=== PATIENT | female | born 1960 | race Caucasian/White ===

== ENCOUNTER 2017-01-28 05:57 | Inpatient (IN) | payer BC, OTHER ==
[2017-01-28] MEDS ORDERED: GABAPENTIN 300 MG CAPSULE (FP) PO ONE (06:31)
[2017-01-28] MEDS ORDERED: TRANEXAMIC ACID 1000 MG/10 ML VIAL IVPUSH ONE (06:31)
[2017-01-28] MEDS ORDERED: CEFAZOLIN 2 GM/D5W 2 GM/50 ML ML IVPB ONE (06:31)
[2017-01-28] MEDS ORDERED: CELECOXIB 200 MG CAPSULE PO ONE (06:31)
[2017-01-28] MEDS ORDERED: ROPIVICAINE 0.2%/MORPH PF/KETOROLAC - 51ML DISP.SYRINGE IA ONE ×2 (06:31→07:33)
[2017-01-28] MEDS ORDERED: oxyCODONE HCL 10 MG SUSTAINED ACTING TABLET PO ONE (06:31)
[2017-01-28] MEDS ORDERED: PANTOPRAZOLE 40 MG TABLET (FP) PO ONE (06:32)
[2017-01-28] MEDS ORDERED: DEXAMETHASONE SOD PHOSPHATE/PF 10 MG/ML SDV ONE (06:45)
[2017-01-28] MEDS ORDERED: SODIUM CHLORIDE 0.9% P/F 10 ML VIAL IJ ONE ×2 (06:45→07:23)
[2017-01-28] MEDS ORDERED: ROPIVACAINE HCL 0.5% 30ML VIAL ONE (06:45)
[2017-01-28] MEDS ORDERED: MIDAZOLAM HCL 2 MG/2 ML SINGLE DOSE VIAL ONE ×2 (06:45→14:03)
[2017-01-28] MEDS ORDERED: oxyCODONE HCL 10 MG SUSTAINED ACTING TABLET ONE (06:57)
[2017-01-28] MEDS ORDERED: GABAPENTIN 300 MG CAPSULE (FP) ONE (06:57)
[2017-01-28] MEDS ORDERED: CELECOXIB 200 MG CAPSULE ONE (06:57)
[2017-01-28] MEDS ORDERED: PANTOPRAZOLE 40 MG TABLET (FP) ONE (06:58)
[2017-01-28] MEDS ORDERED: ONDANSETRON 4 MG/2 ML VIAL ONE (07:11)
[2017-01-28] MEDS ORDERED: PHENYLEPHRINE HCL 10 MG/1 ML SINGLE DOSE VIAL ONE (07:11)
[2017-01-28] MEDS ORDERED: PROPOFOL 20 ML ONE ×7 (07:11→14:07)
[2017-01-28] MEDS ORDERED: ceFAZolin SODIUM 1 GM VIAL ONE ×4 (07:11→12:46)
[2017-01-28] MEDS ORDERED: ePHEDrine SULFATE 50 MG/1 ML AMPULE ONE (07:11)
[2017-01-28] MEDS ORDERED: TRANEXAMIC ACID 1000 MG/10 ML VIAL ONE ×4 (07:15→13:43)
[2017-01-28] MEDS ORDERED: BUPIVACAINE HCL/PF 0.5% (5MG/ML) 10 ML VIAL ONE (07:24)
[2017-01-28] MEDS ORDERED: SCOPOLAMINE HYDROBROMIDE 1 PATCH PATCH.TD72 ONE (07:30)
[2017-01-28] MEDS ORDERED: VANCOMYCIN 1,000 MG VIAL (RESTRICTED TO ID ONLY) ONE (07:33)
--- NOTE | 2017-01-28 07:45 | HP ---
Admitting History and Physical - Admission Chief Complaint: Painful right total knee arthroplasty History of Present Illness: 56 year old female presents today in regard to her right knee. She is status post a previous right total knee arthroplasty. She notes continued pain, difficulty ambulating and difficulty completing ADLs. She has attempted PO medication and activity modification with no relief of her symptoms. 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 Pros, cons, risks, benefits and alternatives of a revision right total knee arthroplasty were discussed. At this point, patient would like to proceed with a revision right total knee arthroplasty. - Past Medical History Cardiovascular: Yes: HTN, Hyperlipdemia ENT: Yes: Other (Vertigo) Endocrine: Yes: Diabetes Mellitus - Past Surgical History Additional Past Surgical History: See written H&P - Smoking History Smoking history: Never smoked Have you smoked in the past 12 months: No - Alcohol/Substance Use Hx Alcohol Use: Yes (OCCASIONAL) Home Medications - Allergies Allergies/Adverse Reactions: Allergies Allergy/AdvReac Type Severity Reaction Status Date / Time No Known Allergies Allergy Verified 04/16/13 20:02 - Home Medications Home Medications: Ambulatory Orders Meclizine HCl [Antivert -] 25 mg PO TID PRN #28 tablet 04/17/13 Atorvastatin Calcium 20 mg PO HS 01/21/17 Canagliflozin [Invokana] 300 mg PO DAILY 01/21/17 Fenofibrate Nanocrystallized [Fenofibrate] 145 mg PO HS 01/21/17 Metoprolol Tartrate 50 mg PO DAILY 01/21/17 Review of Systems - Review of Systems Musculoskeletal: reports: Joint Pain (Right knee), Joint Swelling (Right knee) Physical Examination Vital Signs: Vital Signs Temperature 98.7 F 01/28/17 07:17 Pulse Rate 70 01/28/17 07:17 Respiratory Rate 18 01/28/17 07:17 Blood Pressure 116/78 01/28/17 07:17 O2 Sat by Pulse Oximetry (%) Constitutional: Yes: Well Nourished, No Distress Eyes: Yes: Conjunctiva Clear HENT: Yes: Atraumatic, Normocephalic Neck: Yes: Supple Cardiovascular: Yes: Regular Rate and Rhythm Respiratory: Yes: Regular Gastrointestinal: Yes: Soft ...Rectal Exam: Yes: Deferred Musculoskeletal: Yes: Joint Swelling (Right knee) Assessment/Plan 56 year old female presenting in regard to her right knee. She is status post a previous right total knee arthroplasty. Patient admits to pain, limited ROM, difficulty ambulating and difficulty completing ADLs. Patient has attempted activity modification and PO medications. 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 Pros, cons, risks, benefits and alternatives of a revision right total knee arthroplasty were discussed. Patient confirms her understanding and wishes to proceed with a revision right total knee arthroplasty.
[2017-01-28] MEDS ORDERED: LIDOCAINE HCL 1%, 10 MG/ML (20ML VIAL) ONE (08:01)
[2017-01-28] MEDS ORDERED: THROMBIN (BOVINE) 5,000 UNIT VIAL TP ONE (09:31)
[2017-01-28] MEDS ORDERED: GELATIN, ABSORBABLE 100 EACH SPONGE TP ONE (09:31)
[2017-01-28] MEDS ORDERED: ONDANSETRON 4 MG/2 ML VIAL IVPUSH PRN ×2 (14:47→15:15)
[2017-01-28] MEDS ORDERED: PROMETHAZINE HCL 25 MG/1 ML VIAL IVPUSH PRN (14:47)
[2017-01-28] MEDS ORDERED: traMADol HCL 50 MG TABLET ONE (14:50)
[2017-01-28] MEDS ORDERED: KETOROLAC TROMETHAMINE 30 MG/1 ML VIAL ONE (14:50)
[2017-01-28] MEDS: ACETAMINOPHEN 1000 MG/100 ML VIAL (NON FORMULARY) IVPB ONE ×2 (15:01→16:37)
[2017-01-28] MEDS ORDERED: MECLIZINE HCL 25 MG TABLET (FP) PO PRN (15:10)
--- NOTE | 2017-01-28 15:10 | OP ---
Operative Note - Note: Operative Date: 01/28/17 Pre-Operative Diagnosis: right knee painful TKA, arthrofibrosis Operation: right TKA revision Post-Operative Diagnosis: Same as Pre-op Surgeon: Jules Myers Healthcare Consultant: Kathy Herrera Anesthesia: Spinal Estimated Blood Loss (mls): 500
[2017-01-28] MEDS ORDERED: MAG HYDROX/AL HYDROX/SIMETH 30 ML UNIT-DOSE CUP PO PRN (15:15)
[2017-01-28] MEDS ORDERED: MAGNESIUM HYDROX 2400MG/30ML ORAL SUSPENSION 30 ML CUP PO PRN (15:15)
[2017-01-28] MEDS ORDERED: LACTATED RINGERS SOLUTION 1,000 ML IV SCH (15:15)
[2017-01-28] MEDS ORDERED: ACETAMINOPHEN 1000 MG/100 ML VIAL (NON FORMULARY) IVPB ONE (15:21)
[2017-01-28] MEDS ORDERED: KETOROLAC TROMETHAMINE 30 MG/1 ML VIAL IVPUSH SCH (15:30)
[2017-01-28] MEDS ORDERED: traMADol HCL 50 MG TABLET PO SCH (15:30)
[2017-01-28] MEDS ORDERED: oxyCODONE HCL 5 MG TABLET PO PRN ×2 (15:42)
[2017-01-28] MEDS: LACTATED RINGERS SOLUTION 1,000 ML IV SCH (16:36)
[2017-01-28] MEDS: ACETAMINOPHEN 325 MG TABLET (FP) PO SCH ×2 (16:38→21:16)
[2017-01-28] MEDS: CELECOXIB 200 MG CAPSULE PO SCH (21:16)
[2017-01-28] MEDS: SENNOSIDES/DOCUSATE COMBO (SENNA PLUS) TABLET (UD) PO SCH (21:16)
[2017-01-28] MEDS: ATORVASTATIN CA 20 MG TABLET (FP) PO SCH (21:16)
[2017-01-28] MEDS: GABAPENTIN 300 MG CAPSULE (FP) PO SCH (21:16)
[2017-01-28] MEDS: ASCORBIC ACID 500 MG TABLET (FP) PO SCH (21:16)
[2017-01-28] MEDS: traMADol HCL 50 MG TABLET PO SCH (21:17)
[2017-01-28] MEDS: KETOROLAC TROMETHAMINE 30 MG/1 ML VIAL IVPUSH SCH (21:17)
[2017-01-28] MEDS ORDERED: PATIENT'S OWN MEDICATION (NON-FORMULARY) (Fenofibrate Nanocrystallized [Fenofibrate] 145 M PO SCH (22:00)
[2017-01-29] MEDS: CEFAZOLIN 2 GM/D5W 2 GM/50 ML ML IVPB SCH ×2 (01:43→08:23)
[2017-01-29] MEDS: KETOROLAC TROMETHAMINE 30 MG/1 ML VIAL IVPUSH SCH ×2 (03:00→09:35)
[2017-01-29] MEDS: ACETAMINOPHEN 325 MG TABLET (FP) PO SCH ×4 (04:00→21:46)
[2017-01-29] MEDS: traMADol HCL 50 MG TABLET PO SCH ×5 (08:23→21:45)
[2017-01-29 08:43] LABS: HEMATOCRIT 27.6 % (32.4-45.2); MCH 26.5 pg (25.7-33.7); MCHC 32.7 g/dl (32.0-36.0); PLATELET COUNT 200 K/MM3 (134-434); RDW 14.2 % (11.6-15.6); WHITE BLOOD COUNT 11.4 K/mm3 (4.0-10.8)
[2017-01-29 08:53] LABS: ANION GAP 5 (8-16); BLOOD UREA NITROGEN 21 mg/dl (7-18); CALCIUM 8.4 mg/dl (8.4-10.2); CHLORIDE 110 mmol/L (98-107); CO2 24 mmol/L (22-28); CREATININE 0.8 mg/dl (0.6-1.3); GLUCOSE,RANDOM 155 mg/dl (74-106); POTASSIUM 4.6 mmol/L (3.5-5.1); SODIUM 139 mmol/L (136-145)
[2017-01-29] MEDS: PANTOPRAZOLE 40 MG TABLET (FP) PO SCH (09:35)
[2017-01-29] MEDS: GABAPENTIN 300 MG CAPSULE (FP) PO SCH ×3 (09:35→21:46)
[2017-01-29] MEDS: ASPIRIN 325 MG TABLET PO SCH (09:35)
[2017-01-29] MEDS: SENNOSIDES/DOCUSATE COMBO (SENNA PLUS) TABLET (UD) PO SCH ×2 (09:35→21:46)
[2017-01-29] MEDS: CELECOXIB 200 MG CAPSULE PO SCH ×2 (09:35→21:46)
[2017-01-29] MEDS: METOPROLOL TARTRATE 50 MG TABLET (FP) PO SCH ×2 (09:36→10:23)
[2017-01-29] MEDS: ASCORBIC ACID 500 MG TABLET (FP) PO SCH ×2 (09:36→21:47)
[2017-01-29] MEDS: MULTIVITAMINS (DAILY MVI) TABLET (FP) PO SCH (09:36)
[2017-01-29] MEDS ORDERED: PATIENT'S OWN MEDICATION (NON-FORMULARY) (Canagliflozin [Invokana] 300 MG) PO SCH (10:00)
--- NOTE | 2017-01-29 14:38 | PN ---
Progress Note (short form) - Note Progress Note: 56F POD1 s/p revision right TKR under spinal anesthetic with peripheral nerve blocks for post operative pain control. Pt states that pain is well controlled, and denies any anesthetic complications. Sensory and motor function intact in b/ l lower extremities.
[2017-01-29] MEDS: LACTATED RINGERS SOLUTION 1,000 ML IV SCH (16:22)
--- NOTE | 2017-01-29 20:50 | PN ---
Progress Note (short form) - Note Progress Note: Pt seen and examined. Doing well. Comfortable. AVSS Selected Entries 01/29/17 16:00 Temperature 98 F Pulse Rate 68 Respiratory 18 Rate Blood Pressure 92/62 Laboratory Tests 01/29/17 01/29/17 01/29/17 06:18 07:00 07:00 WBC 11.4 H Hgb 9.0 L Hct 27.6 L Plt Count 200 Sodium 139 Potassium 4.6 Chloride 110 H Carbon Dioxide 24 Anion Gap 5 L BUN 21 H Creatinine 0.8 POC Glucometer 175 Random Glucose 155 H Calcium 8.4 Gen: NAD RLE: c/d/i, NVID A/P 56yo female POD#1 s/p revision R TKA 1. PT/OOB - WBAT RLE 2. D/C home in AM after PT - f/u in office in 10-14 days; call for appt.
--- NOTE | 2017-01-29 21:01 | DS ---
Physical Examination Vital Signs: Vital Signs Temperature 98 F 01/29/17 16:00 Pulse Rate 68 01/29/17 16:00 Respiratory Rate 18 01/29/17 16:00 Blood Pressure 92/62 01/29/17 16:00 O2 Sat by Pulse Oximetry (%) 95 01/29/17 09:00 Labs: CBC, BMP 01/29/17 07:00 01/29/17 07:00 Discharge Summary Reason For Visit: RIGHT KNEE PAIN Current Active Problems Failed total right knee replacement (Acute) Procedures: Principal: revision right TKA, removal of hardware Hospital Course: Admitted for elective surgery. Procedure performed without complications. Pt received postoperative antibiotic prophylaxis and DVT ppx. Ambulated with physical therapy. Stable for discharge home with outpatient followup. Condition: Stable - Instructions Diet, Activity, Other Instructions: Dr. Myers - Knee Replacement Instructions Keep the Aquacel dressing on until removed by Dr. Myers in 10-14 days - it is antibacterial and waterproof and you can shower with it on. Call the office for a follow-up appointment with Dr. Myers in 10-14 days. [phone] Take one Aspirin 325mg daily for 6 weeks to prevent blood clots in your legs. Take one Pantoprazole 40mg daily for 6 weeks to protect against heartburn and ulcers. Take Celebrex 200mg twice daily for 30 days to reduce swelling and inflammation. Take Cephalexin (antibiotic) 3 times a day, with breakfast/lunch/dinner to prevent infection. Take a multivitamin, stool softener, and extra vitamin C supplement daily. For pain: *Mild pain (1-3/10): Take 1 Tramadol tablet every 4 hours as needed. Moderate pain (4-6/10): Take 1 Tramadol tablet and 1 Percocet tablet every 4 hours as needed. Severe pain (7-10/10): Take 1 Tramadol tablet and 2 Percocet tablets every 4 hours as needed. Activity: You can put as much weight on the operative leg as you want. Right after you get home, there will be a physical therapist coming to your house to help you walk around and bend/straighten your knee. After your follow-up appointment, you will be sent for more intensive outpatient physical therapy which will include machines and equipment that the home therapist cannot bring to your house. Always use a walker or cane for balance and to prevent falls. Disposition: HOME - Home Medications Comprehensive Discharge Medication List: Ambulatory Orders Meclizine HCl [Antivert -] 25 mg PO TID PRN #28 tablet 04/17/13 Atorvastatin Calcium 20 mg PO HS 01/21/17 Canagliflozin [Invokana] 300 mg PO DAILY 01/21/17 Fenofibrate Nanocrystallized [Fenofibrate] 145 mg PO HS 01/21/17 Metoprolol Tartrate 50 mg PO DAILY 01/21/17 Ascorbic Acid [Vitamin C -] 500 mg PO BID tablet 01/29/17 Aspirin [ASA -] 325 mg PO DAILY@0800 #40 tablet 01/29/17 Celecoxib [CeleBREX -] 200 mg PO BID #60 capsule 01/29/17 Cephalexin Monohydrate [Keflex -] 500 mg PO TID #30 capsule 01/29/17 Multivitamins [Multivit ([facility])] 1 tab PO DAILY tab 01/29/17 Oxycodone HCl/Acetaminophen [Percocet 5-325 mg Tablet] 1 - 2 tab PO Q4H PRN #60 tablet MDD 8 01/29/17 Pantoprazole Sodium [Protonix -] 40 mg PO DAILY #40 tablet.ec 01/29/17 Sennosides/Docusate Sodium [Pericolace -] 2 tablet PO BID tablet 01/29/17 Tramadol HCl [Ultram -] 50 mg PO Q4H PRN #90 tablet MDD 6 01/29/17
[2017-01-29] MEDS: ATORVASTATIN CA 20 MG TABLET (FP) PO SCH (21:46)
[2017-01-30] MEDS: ACETAMINOPHEN 325 MG TABLET (FP) PO SCH ×2 (05:00→09:54)
[2017-01-30 06:55] VITALS: TEMP 98.2
[2017-01-30 07:00] VITALS: BP 93/47; PULSE 82
[2017-01-30 07:45] LABS: HEMATOCRIT 25.4 % (32.4-45.2); HEMOGLOBIN 8.1 GM/dl (10.7-15.3); MCHC 32.1 g/dl (32.0-36.0); MEAN CELL VOLUME 81.1 fl (80-96); MEAN PLT VOLUME 9.3 fl (7.5-11.1); PLATELET COUNT 155 K/MM3 (134-434); RBC 3.13 M/mm3 (3.60-5.2); RDW 14.1 % (11.6-15.6); WHITE BLOOD COUNT 7.7 K/mm3 (4.0-10.8)
[2017-01-30] MEDS: ASPIRIN 325 MG TABLET PO SCH (08:45)
[2017-01-30 09:08] LABS: ANION GAP 6 (8-16); BLOOD UREA NITROGEN 25 mg/dl (7-18); CALCIUM 7.8 mg/dl (8.4-10.2); CHLORIDE 111 mmol/L (98-107); CO2 24 mmol/L (22-28); CREATININE 0.6 mg/dl (0.6-1.3); GLUCOSE,RANDOM 112 mg/dl (74-106); SODIUM 141 mmol/L (136-145)
[2017-01-30] MEDS: GABAPENTIN 300 MG CAPSULE (FP) PO SCH (09:54)
[2017-01-30] MEDS: PANTOPRAZOLE 40 MG TABLET (FP) PO SCH (09:54)
[2017-01-30] MEDS: ASCORBIC ACID 500 MG TABLET (FP) PO SCH (09:54)
[2017-01-30] MEDS: SENNOSIDES/DOCUSATE COMBO (SENNA PLUS) TABLET (UD) PO SCH (09:54)
[2017-01-30] MEDS: METOPROLOL TARTRATE 50 MG TABLET (FP) PO SCH ×2 (09:54→09:59)
[2017-01-30] MEDS: CELECOXIB 200 MG CAPSULE PO SCH (09:58)
[2017-01-30] MEDS: traMADol HCL 50 MG TABLET PO SCH (09:58)
[2017-01-30] MEDS: MULTIVITAMINS (DAILY MVI) TABLET (FP) PO SCH (09:58)
--- NOTE | 2017-02-01 09:05 | PATH ---
Surgical Pathology Report Patient Name: BAY JAIN Med. Rec. #: [id number] /Age/Gender: 1960 (Age: 56) / F Account: [id number] Location: [facility] Taken: 01/28/2017 Received: 01/28/2017 Reported: 02/01/2017 Physicians: Jules Myers M.D. Specimen(s) Received RIGHT KNEE HARDWARE Clinical History Failed right total knee replacement Final Diagnosis ORTHOPEDIC HARDWARE, RIGHT KNEE, REMOVAL: ORTHOPEDIC HARDWARE CONSISTENT WITH KNEE PROSTHESIS (GROSS ONLY). Electronically Signed Geo Zimmerman M.D. Gross Description Received fresh labeled "right knee hardware," are 3 portions of hardware (2 nazario metallic, 1 white plastic) ranging from 6.3-6.8 cm in greatest dimension, consistent with a knee explant. Also received within the same container are 10 nazario metallic screws ranging from 2.8-7.8 cm in length. No soft tissue is present. No sections are submitted, gross only. 01/29/[address] [facility]01/29/2017
== END 2017-01-30 10:45 | disposition home or self-care (01) | DRG 468 ==
LOC: FM/S 05:57
PROVIDERS: ADMIT Student in an Organized Health Care Education/Training Program; ATTEND Student in an Organized Health Care Education/Training Program
PROC: 0SPC0JZ Removal of Synthetic Substitute from Right Knee Joint, Open Approach (ICD-10-PCS; 2017-01-28)
PROC: 0SRC0JZ Replacement of Right Knee Joint with Synthetic Substitute, Open Approach (ICD-10-PCS; principal; 2017-01-28 09:12)
DX: T84.092A Other mechanical complication of internal right knee prosthesis, initial encounter (principal); Y83.8 Other surgical procedures as the cause of abnormal reaction of the patient, or of later complication, without mention of misadventure at the time of the procedure; Y92.89 Other specified places as the place of occurrence of the external cause; M17.11 Unilateral primary osteoarthritis, right knee; I10 Essential (primary) hypertension; E11.9 Type 2 diabetes mellitus without complications; E78.5 Hyperlipidemia, unspecified; R42 Dizziness and giddiness; Z96.651 Presence of right artificial knee joint
CPT/HCPCS: 36415; 73560-TC-RT; 80048; 85027; 86803; 87389; 88300-TC; 94010; 94760; 97116-GP; 97161-GP

== ENCOUNTER 2017-04-22 06:08 | Day surgery (SDC) | payer BC, OTHER ==
[2017-04-22] MEDS ORDERED: oxyCODONE HCL 10 MG SUSTAINED ACTING TABLET ONE ×2 (07:28→09:53)
--- NOTE | 2017-04-22 07:53 | HP ---
Admitting History and Physical - Admission Chief Complaint: arthrofibrosis of right total knee arthroplasty History of Present Illness: 57 year old female presents in regard to her right knee. she is status post a revision right total knee arthroplasty on 01/28/2017. 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 She has failed physiotherapy. She has severe limited range of motion and difficulty ambulating and difficulty climbing stairs. History Source: Patient - Past Medical History Cardiovascular: Yes: HTN, Hyperlipdemia ENT: Yes: Other (Vertigo) Endocrine: Yes: Diabetes Mellitus - Past Surgical History Additional Past Surgical History: See written history and physical. Revision right total knee arthroplasty 01/28/2017 - Smoking History Smoking history: Never smoked Have you smoked in the past 12 months: No Aproximately how many cigarettes per day: 0 - Alcohol/Substance Use Hx Alcohol Use: No Home Medications - Allergies Allergies/Adverse Reactions: Allergies Allergy/AdvReac Type Severity Reaction Status Date / Time No Known Allergies Allergy Verified 04/16/13 20:02 - Home Medications Home Medications: Ambulatory Orders Meclizine HCl [Antivert -] 25 mg PO TID PRN #28 tablet 04/17/13 Atorvastatin Calcium 40 mg PO HS 01/21/17 Metoprolol Tartrate 50 mg PO DAILY 01/21/17 Aspirin [ASA -] 325 mg PO DAILY@0800 #40 tablet 01/29/17 Oxycodone HCl/Acetaminophen [Percocet 5-325 mg Tablet] 1 - 2 tab PO Q4H PRN #60 tablet MDD 8 01/29/17 Canagliflozin [Invokana] 300 mg PO DAILY 04/21/17 Ezetimibe [Zetia -] 10 mg PO HS 04/21/17 Review of Systems - Review of Systems Musculoskeletal: reports: Decreased ROM (right knee) Physical Examination Vital Signs: Vital Signs Temperature 97.7 F 04/22/17 06:54 Pulse Rate 71 04/22/17 06:54 Respiratory Rate 16 04/22/17 06:54 Blood Pressure 113/73 04/22/17 06:54 O2 Sat by Pulse Oximetry (%) 97 04/22/17 06:54 Constitutional: Yes: Well Nourished, No Distress Eyes: Yes: Conjunctiva Clear HENT: Yes: Atraumatic Neck: Yes: Supple Cardiovascular: Yes: Regular Rate and Rhythm Respiratory: Yes: Regular Gastrointestinal: Yes: Soft ...Rectal Exam: Yes: Deferred Musculoskeletal: Yes: Other (limited range of motion right knee) Assessment/Plan 57 year old female presents in regard to her right knee. she is status post a revision right total knee arthroplasty on 01/28/2017. 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 She has failed physiotherapy. She has severe limited range of motion and difficulty ambulating and difficulty climbing stairs. Pros, cons, risks, benefits, and alternatives of a right knee manipulation under anesthesia was discussed with the patient. Patient confirms her understanding and wishes to proceed with a manipulation under anesthesia of her right total knee arthroplasty.
[2017-04-22] MEDS ORDERED: KETOROLAC TROMETHAMINE 60 MG/2 ML VIAL ONE (08:13)
[2017-04-22] MEDS ORDERED: BUPIVACAINE HCL/PF 2.5 MG/ML - 30 ML VIAL IJ ONE (08:13)
[2017-04-22] MEDS ORDERED: LIDOCAINE HCL 2% (20ML MULTI-DOSE VIAL) NR ONE (08:15)
--- NOTE | 2017-04-22 08:43 | OP ---
Operative Note - Note: Operative Date: 04/22/17 Pre-Operative Diagnosis: Right TKA arthrofibrosis Operation: R TKA JEANCARLOS Post-Operative Diagnosis: Same as Pre-op Surgeon: Jules Myers Beater Out: Kathy Herrera Anesthesia: MAC Estimated Blood Loss (mls): 0 Operative Report Dictated: Yes
[2017-04-22] MEDS ORDERED: ACETAMINOPHEN 1000 MG/100 ML VIAL (NON FORMULARY) IVPB ONE (08:46)
[2017-04-22] MEDS ORDERED: oxyCODONE HCL 10 MG SUSTAINED ACTING TABLET PO ONE (08:46)
[2017-04-22] MEDS ORDERED: oxyCODONE HCL 5 MG TABLET PO ONE (08:47)
[2017-04-22] MEDS ORDERED: ACETAMINOPHEN INJECTION 100 ML IVPB ONE (08:50)
[2017-04-22] MEDS ORDERED: ONDANSETRON 4 MG/2 ML VIAL ONE (09:02)
--- NOTE | 2017-04-22 09:30 | OP ---
DATE OF OPERATION: 04/22/2017 PREOPERATIVE DIAGNOSIS: Right total knee replacement arthrofibrosis. POSTOPERATIVE DIAGNOSIS: Right total knee replacement arthrofibrosis. PROCEDURE: Right knee manipulation under anesthesia. SURGEON: Eneida Szymanski MD CONSUMER MARKETING ANALYST: ALANA Quick ANESTHESIA: Conscious sedation. ESTIMATED BLOOD LOSS: 0 mL. COMPLICATIONS: None. SPECIMENS: None. DISPOSITION: The patient was awakened and discharged home. INDICATIONS: This is a 57-year-old female with a history of right total knee replacement with subsequent arthrofibrosis. She underwent manipulation under anesthesia at another hospital and sustained a distal femur fracture in the process. She then underwent open reduction, internal fixation of the femur fracture, and then went onto develop worse arthrofibrosis. She was seen and examined by Dr. Szymanski in the office for painful total knee replacement and very limited range of motion and had been indicated for a revision of the knee replacement. She underwent revision surgery without complication, but had stiffness afterwards, although her range of motion was significantly improved from the prior knee replacement, and she was happy with the progress. DESCRIPTION OF PROCEDURE: On the day of the procedure, the patient was taken to the PACU and placed under sedation. While under anesthesia, range of motion of the right knee was measured, and it went from approximately 10 degrees flexion contracture to 85 degrees of flexion. After that, there was a hard, firm end-point. With the patient under deep sedation, the knee was gently manipulated, being careful not to put too much torque on the femur and tibia to prevent another fracture. Audible sounds of crepitus were heard as scar tissue was disrupted inside the knee, and range of motion improved greatly. Her final range of motion at the end of manipulation was 5 degrees flexion contracture to approximately 115 degrees of flexion. Once this was completed, the knee was injected intraarticularly. After sterile skin preparation, he was injected with Toradol, lidocaine, and bupivacaine for sustained post-procedure pain relief. The patient was then awakened and discharged home. ENEIDA SZYMANSKI M.D. [id number]
[2017-04-22] MEDS ORDERED: oxyCODONE HCL 5 MG TABLET ONE (09:53)
[2017-04-22 11:14] VITALS: TEMP 97.6
[2017-04-22 11:19] VITALS: BP 107/71; PULSE 60
== END 2017-04-22 10:55 | disposition home or self-care (01) ==
LOC: FASU 06:08
PROVIDERS: ATTEND Student in an Organized Health Care Education/Training Program
PROC: 0SSCXZZ Reposition Right Knee Joint, External Approach (ICD-10-PCS; principal; 2017-04-22 08:32)
DX: M24.661 Ankylosis, right knee (principal); Z96.651 Presence of right artificial knee joint
CPT/HCPCS: 82962; 94760

== ENCOUNTER 2017-12-28 12:18 | Emergency (ER) | payer OTHER ==
--- NOTE | 2017-12-28 12:25 | PDOC ---
History of Present Illness - General Chief Complaint: Pain Stated Complaint: RIGHT KNEE PAIN Time Seen by Provider: 12/28/17 12:22 History Source: Patient Exam Limitations: No Limitations - History of Present Illness Initial Comments: 12/28/17 12:30 Ms Maya 57 yo F presenting to the ER with right knee pain. Pt R leg slipped off a stair on Wednesday (she did not fall) but sustained an axial load to the right leg while the knee was extended. Her leg has been hurting since. She drescribes the pain as 8/10, nonradiating localized to frontal avina and lateral lower thigh. She endorses numbness and tingling as well as dec ROM. She states her medial knee is more swollen than usual. She is seen by Dr Myers. She has contacted her orthopedists office but due to insurance issues, they will not see her. Pt denies any fever, chills, or redness to R leg. Pt states pain has been consistent since Wednesday, not improving. She is not currently taking any medications to treat the pain. PMH: HTN, HLD PSH: total knee replacement 2016, femur fracture repair w revision to total knee 2017 Meds: Atorvastatin, Metoprolol, Ventolin, ALL: NKDA Social: denies alcohol drug cigarettes FH: non contributory ROS: GENERAL/CONSTITUTIONAL: No: fever, chills, weakness, loss of appetite. HEAD, EYES, EARS, NOSE AND THROAT: No: change in vision, ear pain, discharge, sore throat, throat swelling. CARDIOVASCULAR: No: chest pain, lightheadedness, palpitations, syncope RESPIRATORY: No: cough, shortness of breath, wheezing, hemoptysis, stridor. GASTROINTESTINAL: No: nausea, vomiting, diarrhea, abdominal cramping, rectal bleeding, constipation. GENITOURINARY: No: dysuria, hematuria, frequency, urgency, flank pain. MUSCULOSKELETAL: (+) right knee pain No: back pain SKIN: No: lesions, pallor, rash or easy bruising. NEUROLOGIC: No: headache, vertigo, paresthesias, weakness ENDOCRINE: No: unexplained weight gain or loss HEMATOLOGIC/LYMPHATIC: No: anemia, easy bleeding, swelling nodes. PE: GENERAL: The patient is in no acute distress. HEAD: Normal . EYES: PERRLA, EOMI, sclera anicteric, conjunctiva clear. ENT: Ears normal, nares patent, oropharynx clear without exudates. Moist mucous membranes. NECK: Normal range of motion, supple LUNGS: Breath sounds equal, clear to auscultation bilaterally. No wheezes, and no crackles. HEART:Regular rate and rhythm, normal S1 and S2 without murmur, rub or gallop. ABDOMEN: Soft, nontender, normoactive bowel sounds. EXTREMITIES: Normal range of motion, (+) right knee swelling NEUROLOGICAL: Cranial nerves II through XII grossly intact. Normal speech. No focal neurological deficits. MUSCULOSKELETAL: Limited range of motion right knee, (+) Swelling SKIN: Well healed surgical scar 12/28/17 12:33 12/28/17 12:42 12/29/17 08:37 Past History - Past Medical History Allergies/Adverse Reactions: Allergies Allergy/AdvReac Type Severity Reaction Status Date / Time No Known Allergies Allergy Verified 12/28/17 12:19 Home Medications: Ambulatory Orders Atorvastatin Calcium 40 mg PO HS 01/21/17 Metoprolol Tartrate 100 mg PO DAILY 01/21/17 Canagliflozin [Invokana] 300 mg PO DAILY 04/21/17 Ezetimibe [Zetia -] 10 mg PO HS 04/21/17 Acetaminophen W/ Codeine #3 [Tylenol # 3 -] 1 tab PO TID PRN #12 tablet MDD 3 Lidocaine 5% Patch [Lidoderm Patch -] 1 patch TP DAILY PRN #30 patch 12/28/17 Naproxen Sodium 220 mg PO BID PRN #30 tablet 12/28/17 Naproxen [Naprosyn -] 500 mg PO BID PRN #14 tablet 12/28/17 Anemia: No Asthma: No Cancer: No Cardiac Disorders: No CVA: No COPD: No CHF: No Dementia: No Diabetes: Yes (2014) GI Disorders: Yes (GERD) Disorders: No HTN: Yes Hypercholesterolemia: Yes Liver Disease: No Seizures: No Thyroid Disease: No - Surgical History Abdominal Surgery: No Appendectomy: No Cardiac Surgery: No Cholecystectomy: No Lung Surgery: No Neurologic Surgery: No Orthopedic Surgery: Yes (RIGHT TKR 02/2015/RIGHT TKR REVISION 02/2016) - Suicide/Smoking/Psychosocial Hx Smoking Status: No Smoking History: Never smoked Have you smoked in the past 12 months: No Number of Cigarettes Smoked Daily: 0 Hx Alcohol Use: No Drug/Substance Use Hx: No Substance Use Type: None Hx Substance Use Treatment: No Medical Decision Making - Medical Decision Making 12/28/17 12:41 Right knee pain s/p injury 5 days ago Will do: Xray Re assess 12/28/17 13:32 Xrays negative for fracture or dislocation Will plan to discharge to home Will norma cat Will ask pt to follow up with orthopedist here (her orthopedist can not see her due to insurance issues) Call placed to Ortho, there are no additional studies necessary at this time Pt will need to be seen by surgeon who did her operation Clinical impression: knee pain s/p injury, initial presentation 12/29/17 08:52 *DC/Admit/Observation/Transfer Diagnosis at time of Disposition: Right knee injury Qualifiers: Encounter type: initial encounter Qualified Code(s): S89.91XA - Unspecified injury of right lower leg, initial encounter - Discharge Dispostion Disposition: HOME Condition at time of disposition: Stable Decision to Admit order: No - Prescriptions Prescriptions: Acetaminophen W/ Codeine #3 [Tylenol # 3 -] 1 tab PO TID PRN #12 tablet MDD 3 PRN Reason: Pain Lidocaine 5% Patch [Lidoderm Patch -] 1 patch TP DAILY PRN #30 patch PRN Reason: Pain Naproxen [Naprosyn -] 500 mg PO BID PRN #14 tablet PRN Reason: Pain Naproxen Sodium 220 mg PO BID PRN #30 tablet PRN Reason: Pain - Referrals Referrals: Romie Cope MD [Staff Physician] - - Patient Instructions Printed Discharge Instructions: DI for Knee Pain Additional Instructions: Ms Maya Thank you for coming in to the ER today Please be sure to follow up with the orthopedist - try again to see Dr Myers If this doesn't work out, you can try to follow up with the Orthopedic practice here at [facility] Please norma wrmark if this is comfortable for you Please take medications as prescribed Return to the ER for worsening symptoms, any other concerns or complaints - Post Discharge Activity
[2017-12-28 12:41] VITALS: BP 128/84; PULSE 76; TEMP 98.6; BMI 30.2
== END 2017-12-28 13:56 | disposition home or self-care (01) ==
LOC: FER 12:18
DX: M79.661 Pain in right lower leg (principal); I10 Essential (primary) hypertension; E11.9 Type 2 diabetes mellitus without complications; E78.00 Pure hypercholesterolemia, unspecified; K21.9 Gastro-esophageal reflux disease without esophagitis
CPT/HCPCS: 73552-TC-RT-FY; 73562-TC-RT-FY; 99282-25

== ENCOUNTER 2020-07-09 05:50 | Day surgery (SDC) | payer OTHER ==
[2020-07-03 12:19] VITALS: BMI 28.3
[2020-07-09] MEDS ORDERED: SUCCINYLCHOLINE CHLORIDE 200 MG/10 ML SYRINGE ONE (07:23)
[2020-07-09] MEDS ORDERED: MIDAZOLAM HCL 2 MG/2 ML SINGLE DOSE VIAL ONE (07:23)
[2020-07-09] MEDS ORDERED: PROPOFOL 20 ML ONE (07:23)
[2020-07-09] MEDS ORDERED: OXYMETAZOLINE 0.05% NASAL SOLUTION 15 ML BOTTLE NS ONE (07:25)
[2020-07-09] MEDS ORDERED: ERYTHROMYCIN 0.5% OPHTHALMIC OINTMENT 3.5 GM TUBE ONE (07:25)
[2020-07-09] MEDS ORDERED: TETRACAINE 0.5% OPHTH SOLN 2 ML BOTTLE ONE (07:25)
[2020-07-09] MEDS ORDERED: POVIDONE-IODINE 5% OPHTHALMIC PREP 30 ML SOLUTION ONE (07:26)
[2020-07-09] MEDS ORDERED: LIDOCAINE 1%/EPI 1:100000 (20 ML MULTI DOSE VIAL) ONE (07:26)
[2020-07-09] MEDS ORDERED: THROMBIN (RECOMBINANT) 5,000 UNIT VIAL TP ONE (07:26)
[2020-07-09] MEDS ORDERED: ONDANSETRON 4 MG/2 ML VIAL ONE ×2 (07:54→08:43)
[2020-07-09] MEDS ORDERED: ceFAZolin SODIUM 1 GM VIAL ONE (07:54)
[2020-07-09] MEDS ORDERED: DEXAMETHASONE SOD PHOSPHATE 4 MG/1 ML VIAL ONE ×2 (07:56→07:57)
[2020-07-09] MEDS ORDERED: ONDANSETRON 4 MG/2 ML VIAL IVPUSH PRN (09:10)
[2020-07-09] MEDS ORDERED: oxyCODONE HCL 5 MG TABLET PO PRN (09:10)
[2020-07-09] MEDS ORDERED: LACTATED RINGERS SOLUTION 1,000 ML IV SCH (09:15)
[2020-07-09 11:23] VITALS: PULSE 63; TEMP 97.8
[2020-07-09 11:34] VITALS: BP 121/65
== END 2020-07-09 12:40 | disposition home or self-care (01) ==
LOC: FASU 05:50
PROVIDERS: ATTEND Ophthalmology
PROC: 081X0J3 Bypass Right Lacrimal Duct to Nasal Cavity with Synthetic Substitute, Open Approach (ICD-10-PCS; 2020-07-09)
PROC: 09BV8ZZ Excision of Left Ethmoid Sinus, Via Natural or Artificial Opening Endoscopic (ICD-10-PCS; 2020-07-09)
PROC: 09BU8ZZ Excision of Right Ethmoid Sinus, Via Natural or Artificial Opening Endoscopic (ICD-10-PCS; 2020-07-09)
PROC: 08B Eye, Excision (ICD-10-PCS; 2020-07-09)
PROC: 087 Eye, Dilation (ICD-10-PCS; 2020-07-09)
PROC: 081Y0J3 Bypass Left Lacrimal Duct to Nasal Cavity with Synthetic Substitute, Open Approach (ICD-10-PCS; principal; 2020-07-09 08:02)
DX: H04.553 Acquired stenosis of bilateral nasolacrimal duct (principal)
CPT/HCPCS: 82962; 88300-TC; 88304-TC; 88311-TC; 94760

== ENCOUNTER 2021-05-20 12:47 | Emergency (ER) | payer OTHER ==
[2021-05-20 13:00] VITALS: BP 145/71; PULSE 77; TEMP 98.1; BMI 28.3
[2021-05-20] MEDS ORDERED: IBUPROFEN 600 MG TABLET (FP) PO ONE ×2 (14:27→14:37)
== END 2021-05-20 15:52 | disposition home or self-care (01) ==
LOC: JER 12:47
DX: M79.671 Pain in right foot (principal)
CPT/HCPCS: 99283-25

== ENCOUNTER 2021-05-31 19:39 | Emergency (ER) | payer OTHER ==
[2021-05-31 19:48] VITALS: BP 107/71; PULSE 74; TEMP 97.6; BMI 28.3
[2021-05-31] MEDS ORDERED: ACETAMINOPHEN 500 MG TABLET (FP) PO ONE (20:40)
[2021-05-31] MEDS ORDERED: ACETAMINOPHEN 325 MG TABLET (FP) ONE (21:08)
[2021-05-31] MEDS ORDERED: LIDOCAINE 5% TOPICAL PATCH TP ONE (22:18)
[2021-05-31] MEDS ORDERED: diazePAM 5 MG TABLET PO ONE (22:19)
[2021-05-31] MEDS ORDERED: LIDOCAINE 5% TOPICAL PATCH ONE (22:58)
[2021-05-31] MEDS ORDERED: diazePAM 5 MG TABLET ONE (22:58)
[2021-06-01] MEDS ORDERED: LIDOCAINE PATCH REMOVAL MC SCH (11:00)
== END 2021-05-31 23:44 | disposition home or self-care (01) ==
LOC: JER 19:39
DX: M54.50 Low back pain, unspecified (principal); V00.181A Fall from other rolling-type pedestrian conveyance, initial encounter
CPT/HCPCS: 72125-TC; 72128-TC; 72131-TC; 99285-25

== ENCOUNTER 2021-12-02 07:41 | Day surgery (SDC) | payer OTHER ==
[2021-11-26 16:26] VITALS: BMI 27.8
[2021-12-02] MEDS ORDERED: MITOMYCIN 0.02% EYE DROPS - 2ML VIAL IO ONE (09:00)
[2021-12-02] MEDS ORDERED: PROPOFOL 20 ML ONE (09:36)
[2021-12-02] MEDS ORDERED: MIDAZOLAM HCL 2 MG/2 ML SINGLE DOSE VIAL ONE (09:36)
[2021-12-02] MEDS ORDERED: OXYMETAZOLINE 0.05% NASAL SOLUTION 15 ML BOTTLE NS ONE (10:16)
[2021-12-02] MEDS ORDERED: BUPIVACAINE HCL/PF 0.5% (5MG/ML) 10 ML VIAL ONE (10:17)
[2021-12-02] MEDS ORDERED: POVIDONE-IODINE 5% OPHTHALMIC PREP 30 ML SOLUTION ONE (10:17)
[2021-12-02] MEDS ORDERED: LIDOCAINE HCL 1%, 10 MG/ML (20ML VIAL) ONE (10:17)
[2021-12-02] MEDS ORDERED: ERYTHROMYCIN 0.5% OPHTHALMIC OINTMENT 3.5 GM TUBE ONE (10:17)
[2021-12-02] MEDS ORDERED: THROMBIN (BOVINE) 5,000 UNIT VIAL TP ONE (10:17)
[2021-12-02] MEDS ORDERED: TETRACAINE 0.5% OPHTH SOLN 2 ML BOTTLE ONE (10:23)
[2021-12-02] MEDS ORDERED: BSS (NA/CA/MG/K) BALANCED SALT SOLUTION OPHTH SOLN 15 ML BOTTLE ONE (11:22)
[2021-12-02] MEDS ORDERED: ceFAZolin SODIUM 1 GM VIAL ONE (12:00)
[2021-12-02] MEDS ORDERED: ONDANSETRON 4 MG/2 ML VIAL ONE ×2 (12:00→12:01)
[2021-12-02] MEDS ORDERED: DEXAMETHASONE SOD PHOSPHATE 4 MG/1 ML VIAL ONE (12:01)
[2021-12-02] MEDS ORDERED: ONDANSETRON 4 MG/2 ML VIAL IVPUSH PRN (12:15)
[2021-12-02] MEDS ORDERED: oxyCODONE HCL 5 MG TABLET PO PRN (12:15)
[2021-12-02] MEDS ORDERED: LACTATED RINGERS SOLUTION 1,000 ML IV SCH (12:15)
[2021-12-02 13:46] VITALS: TEMP 97.9
[2021-12-02 14:30] VITALS: BP 122/60; PULSE 66; RESP 16
== END 2021-12-02 14:25 | disposition home or self-care (01) ==
LOC: FASU 07:41
PROVIDERS: ATTEND Ophthalmology
PROC: 081Y0Z3 Bypass Left Lacrimal Duct to Nasal Cavity, Open Approach (ICD-10-PCS; principal; 2021-12-02 10:59)
DX: H04.553 Acquired stenosis of bilateral nasolacrimal duct (principal); H04.202 Unspecified epiphora, left side
CPT/HCPCS: 82962; 88304-TC; 88311-TC; 94760

== ENCOUNTER 2022-03-21 20:03 | Observation (INO) | payer OTHER ==
[2022-03-21 20:08] VITALS: BMI 26.4
[2022-03-21] MEDS ORDERED: IBUPROFEN 600 MG TABLET (FP) PO ONE ×2 (21:09→21:18)
[2022-03-21] MEDS ORDERED: IBUPROFEN 400 MG TABLET (FP) PO ONE (21:23)
[2022-03-21 22:07] LABS: HEMATOCRIT 44.5 % (32.4-45.2); MCH 25.7 pg (25.7-33.7); MCHC 31.5 g/dl (32.0-36.0); MEAN CELL VOLUME 81.6 fl (80-96); MEAN PLT VOLUME 9.5 fl (7.5-11.1); PLATELET COUNT 177 10^3/uL (134-434); RBC 5.45 M/mm3 (3.60-5.2); RDW 15.8 % (11.6-15.6); WHITE BLOOD COUNT 8.3 K/mm3 (4.0-10.0)
[2022-03-21 22:21] LABS: CHLORIDE 112 mmol/L (98-107); SODIUM 144 mmol/L (136-145)
[2022-03-21 22:22] LABS: CALCIUM 8.6 mg/dL (8.5-10.1)
[2022-03-21 22:23] LABS: ALBUMIN 3.6 g/dl (3.4-5.0); ANION GAP 9 MMOL/L (8-16); BLOOD UREA NITROGEN 19.3 mg/dL (7-18); CO2 23 mmol/L (21-32); GLUCOSE,RANDOM 121 mg/dL (74-106)
[2022-03-21 22:26] LABS: CREATININE 0.7 mg/dL (0.55-1.3); SGOT/AST 24 U/L (15-37); SGPT/ALT 46 U/L (13-61)
[2022-03-21 22:28] LABS: BILIRUBIN,TOTAL 0.4 mg/dL (0.2-1); TOT PROT 7.7 g/dl (6.4-8.2)
[2022-03-21 22:29] LABS: ALK PHOS 104 U/L (45-117)
[2022-03-22 06:35] LABS: BASO % 0.8 % (0-2.0); EOS % 1.6 % (0-4.5); HEMATOCRIT 41.7 % (32.4-45.2); HEMOGLOBIN 13.3 GM/dL (10.7-15.3); LYMPH % 30.4 % (8-40); MCHC 31.8 g/dl (32.0-36.0); MEAN CELL VOLUME 81.8 fl (80-96); MEAN PLT VOLUME 9.2 fl (7.5-11.1); MONO % 6.1 % (3.8-10.2); NEUT % 61.1 % (42.8-82.8); PLATELET COUNT 165 10^3/uL (134-434); WHITE BLOOD COUNT 7.6 K/mm3 (4.0-10.0)
[2022-03-22] MEDS: INSULIN SLIDING SCALE (NOVOLOG) 1 VIAL SQ SCH ×4 (06:54→21:26)
[2022-03-22 06:57] LABS: ALBUMIN 3.6 g/dl (3.4-5.0); BLOOD UREA NITROGEN 18.9 mg/dL (7-18); CALCIUM 8.8 mg/dL (8.5-10.1)
[2022-03-22 07:00] LABS: CREATININE 0.7 mg/dL (0.55-1.3); PHOSPHOROUS 3.4 mg/dL (2.5-4.9)
[2022-03-22 07:02] LABS: BILIRUBIN,TOTAL 0.8 mg/dL (0.2-1); TOT PROT 7.5 g/dl (6.4-8.2)
[2022-03-22] MEDS ORDERED: ACETAMINOPHEN 1000 MG/100 ML BAG IVPB PRN (08:07)
[2022-03-22] MEDS: DEXTROSE 5%-0.45% SALINE 1,000 ML IV SCH (09:19)
[2022-03-22] MEDS: ENOXAPARIN NA (PORCINE) 40 MG/0.4 ML DISP.SYRIN SQ SCH (09:19)
[2022-03-22] MEDS ORDERED: EZETIMIBE 10 MG TABLET (FP) PO SCH (22:00)
[2022-03-22 22:22] VITALS: TEMP 98.3
[2022-03-23] MEDS: DEXTROSE 5%-0.45% SALINE 1,000 ML IV SCH ×2 (05:25→09:52)
[2022-03-23] MEDS: INSULIN SLIDING SCALE (NOVOLOG) 1 VIAL SQ SCH ×3 (06:22→17:37)
[2022-03-23] MEDS: ENOXAPARIN NA (PORCINE) 40 MG/0.4 ML DISP.SYRIN SQ SCH (09:51)
[2022-03-23] MEDS ORDERED: ATORVASTATIN CA 40 MG TABLET (FP) PO SCH (10:00)
[2022-03-23 10:36] LABS: BASO % 0.5 % (0-2.0); EOS % 1.7 % (0-4.5); HEMOGLOBIN 13.2 GM/dL (10.7-15.3); LYMPH % 26.7 % (8-40); MCH 26.6 pg (25.7-33.7); MCHC 32.2 g/dl (32.0-36.0); MEAN CELL VOLUME 82.6 fl (80-96); MEAN PLT VOLUME 8.9 fl (7.5-11.1); MONO % 5.2 % (3.8-10.2); NEUT % 65.9 % (42.8-82.8); PLATELET COUNT 159 10^3/uL (134-434); RBC 4.97 M/mm3 (3.60-5.2); WHITE BLOOD COUNT 5.4 K/mm3 (4.0-10.0)
[2022-03-23 11:30] LABS: ALBUMIN 3.3 g/dl (3.4-5.0); BLOOD UREA NITROGEN 11.5 mg/dL (7-18); CALCIUM 8.9 mg/dL (8.5-10.1)
[2022-03-23 11:31] LABS: BILIRUBIN,TOTAL 0.7 mg/dL (0.2-1); TOT PROT 7.1 g/dl (6.4-8.2)
[2022-03-23 11:33] LABS: CREATININE 0.7 mg/dL (0.55-1.3)
[2022-03-23 16:10] VITALS: BP 124/70; PULSE 72; RESP 16
== END 2022-03-23 16:51 | disposition home or self-care (01) ==
LOC: JER 20:03 → UNDOADMOB 03-22 03:27 → INTOOBSV 03-22 03:27 → JERBED 03-22 03:27 → J5S 03-22 07:06 → JERBED 03-23 14:54
PROVIDERS: ADMIT Internal Medicine; ATTEND Internal Medicine
PROC: 3E033NZ Introduction of Analgesics, Hypnotics, Sedatives into Peripheral Vein, Percutaneous Approach (ICD-10-PCS; principal; 2022-03-23)
PROC: 3E023GC Introduction of Other Therapeutic Substance into Muscle, Percutaneous Approach (ICD-10-PCS; 2022-03-23)
DX: K83.8 Other specified diseases of biliary tract (principal); E11.9 Type 2 diabetes mellitus without complications; Z96.651 Presence of right artificial knee joint
CPT/HCPCS: 36415; 71046-TC-FY; 71260-TC; 74177-TC; 74181-TC; 76705-TC; 80053; 82962; 83735; 84100; 84484; 85025; 85027; 85379; 93005; 93010; 96372; 96374; 99291; C9803-CS; G0378; Q9967; U0003; U0005

== ENCOUNTER 2022-10-23 16:19 | Emergency (ER) | payer OTHER ==
[2022-10-23 16:31] VITALS: BP 127/66; PULSE 69; RESP 18; TEMP 98.2; BMI 26.8
[2022-10-23] MEDS ORDERED: ACETAMINOPHEN 500 MG TABLET (FP) PO ONE (17:18)
[2022-10-23] MEDS ORDERED: ACETAMINOPHEN 325 MG TABLET (FP) ONE (18:16)
== END 2022-10-23 21:32 | disposition home or self-care (01) ==
LOC: JER 16:19
DX: M79.662 Pain in left lower leg (principal); R22.42 Localized swelling, mass and lump, left lower limb; S80.12XA Contusion of left lower leg, initial encounter; X58.XXXA Exposure to other specified factors, initial encounter
CPT/HCPCS: 93970-TC; 99284-25